=== PATIENT | male | born 1950 | race Caucasian/White ===

== ENCOUNTER 2022-11-24 00:41 | Inpatient (IN) | payer MEDICARE, SELFPAY ==
[2022-11-24] VITALS (33 sets, daily range): BP systolic 100–140; BP diastolic 49–73; PULSE 61–740; RESP 14–23; TEMP 36–38.1; O2SAT 91–98; BMI 35.0
--- NOTE | 2022-11-24 00:38 | W.PM.HP.N ---
Date of service: 11/24/22 Time of Service: 06:37 Assessment and Plan Assessment and plan (1) Intertrochanteric fracture of left femur: Start date: 11/23/22 Status: Acute Assessment and plan: This is a 72-year-old gentleman who fell and injured his left hip while trying to get into his car. He had a mechanical fall with no presyncopal symptoms. He had no other injuries. He is medically cleared for surgery except for being on Eliquis which will have to be held for 24 hours prior to surgery. He most likely will have his repair the morning of 11/25/2022. Dr. Ledezma, orthopedics has been consulted and is aware of patient. (2) Influenza A: Status: Acute Assessment and plan: Patient has positive influenza A testing with no symptoms. Caution for contagiousness during perioperative period. No indication for Tamiflu unless prophylactic which would be for 10-day course. (3) CAD (coronary artery disease) of artery bypass graft: Status: Chronic Assessment and plan: Patient is status post CABG x4 in 2016 with no recurrent cardiac symptoms especially around this event. He had a negative work-up at [facility] ED and remained stable at this hospital. He is medically cleared for surgery. He will continue his usual medical regimen. (4) Family history of hypercoagulable state: Status: Chronic Assessment and plan: Patient cannot give a good reason for being on Eliquis with no history of cardiac dysrhythmia and stating that his PCP thought that he would be a good idea to be on Eliquis because of his mother had thromboembolic events though he mentions no testing or previous events of his own. This can be reevaluated. Hold Eliquis prior to surgery and restart when safe. (5) HTN (hypertension): Status: Chronic Assessment and plan: Fairly well controlled on medical therapy but patient does have hypokalemia with potassium supplement on hydrochlorothiazide. Follow-up lab and replete potassium as needed with patient chronically on potassium supplementation. Check magnesium. (6) Hyperlipidemia: Status: Chronic Assessment and plan: On statin therapy being monitored by PCP with adjustment as needed. History of Present Illness History of Present Illness Chief Complaint: Mechanical fall with left hip fracture Narrative: This is a 72-year-old male patient who lives in [place] near [facility] who was getting out of his car about 4 PM in the afternoon the day prior to admission with a handful of mail and slipped on the ice falling onto his left side striking his left hip very hard. He had extreme pain and was on the ground for about 20 minutes with no unable to help him therefore he crawled back into his car and drove himself to the emergency room at the local hospital. He was evaluated and found to have an acute left intratrochanteric fracture with no other complications. He recently did go through a CABG x4 in 2016 and does have chronic stable medical problems including hypertension, rheumatoid arthritis, hypothyroidism, hyperlipidemia and some chronic pain issues with his arthritis. He was placed on Eliquis because of the family history of hypercoagulability but not because of her cardiac arrhythmia or thromboembolic events and the patient himself. This may delay his surgery having taken his Eliquis as usual the morning prior to admission. [facility] ED called Dr. Ledezma the local orthopedic surgeon who accepts the patient for transfer and surgical repair of his hip fracture. Since he was medically stable he was admitted to the hospitalist service for clearance. Pain management was ongoing with IV Dilaudid. Patient never lost consciousness and did refuse a CT scan of his head though offered because of being on Eliquis. He said he did not hit his head or have any injuries other than his hip. Patient is a full code. Review of Systems Narrative: 13 point review of systems otherwise unrevealing or stable. [facility] All Active Problems (Updated 11/24/22 @ 06:50 by Jagdeep Mendez) Hypothyroidism (acquired) (Acute) Hypokalemia (Acute) Family history of hypercoagulable state (Chronic) Hyperlipidemia (Chronic) HTN (hypertension) (Chronic) Rheumatoid arthritis in remission (Acute) Influenza A (Acute) CAD (coronary artery disease) of artery bypass graft (Chronic) Intertrochanteric fracture of left femur (Acute) Social History Smoking/Tobacco Use Status: Never Smoking risk assessment performed?: Yes Alcohol Intake: never Drug use: Never Substance use type: does not use Do you feel safe at home: Yes Do you feel safe in your relationship?: Yes Meds Allergies and Home Medications Allergies Allergy/AdvReac Type Severity Reaction Status Date / Time No Known Allergies Allergy Unverified 11/24/22 02:43 Home Medications Medication Instructions Recorded Confirmed Type apixaban 5 mg tablet 5 mg PO BID 11/24/22 11/24/22 History folic acid 1 mg tablet 1 mg PO DAILY 11/24/22 11/24/22 History hydrochlorothiazide 25 mg tablet 25 mg PO DAILY 11/24/22 11/24/22 History levothyroxine 150 mcg tablet 150 mcg PO DAILY 11/24/22 11/24/22 History lidocaine 5 % topical patch 1 patch topical DAILY 11/24/22 11/24/22 History losartan 25 mg tablet 25 mg PO DAILY 11/24/22 11/24/22 History methotrexate sodium 2.5 mg tablet 2.5 mg PO QWEEK 11/24/22 11/24/22 History nitroglycerin 0.4 mg sublingual 0.4 mg sublingual Q5-15M PRN Angina 11/24/22 11/24/22 History tablet nortriptyline 10 mg capsule 10 mg PO QHS 11/24/22 11/24/22 History potassium citrate 10 mEq (1,080 2,160 mg PO BID 11/24/22 11/24/22 History mg) tablet,extended release pregabalin 75 mg capsule 75 mg PO BID 11/24/22 11/24/22 History rosuvastatin 20 mg tablet 20 mg PO HS 11/24/22 11/24/22 History tamsulosin 0.4 mg capsule 0.8 mg PO DAILY 11/24/22 11/24/22 History Exam Narrative Exam Narrative: General: Patient appears appropriate for age, moderately obese and mesomorphic. He is alert and oriented x3. He is in no acute distress. HEENT: Normocephalic, eyes with pupils equal and react to light symmetrically, extraocular movement intact and sclera anicteric. Oropharynx with moist mucosa. Neck: Supple without JVD. Back: Stooped posture without CVA tenderness. Lungs: Fair aeration and clear to auscultation percussion. No focalizing rales or rhonchi. Heart: Regular rate and rhythm with no murmurs gallops appreciated. Chest has well-healed sternal scar. Abdomen: Obese contour, soft and nontender to palpation with no palpable hepatosplenomegaly. Bowel sounds positive all quadrants. Genitalia/rectal: Full exam deferred. External genitalia appear within normal limits. Extremities: Without clubbing, cyanosis or pitting edema with some nonpitting edema over both legs. Peripheral pulses intact. Left leg is slightly shortened with foot turned outward. Left hip is tender to movement. No bruising or swelling. Skin: Darkly tanned, normal color otherwise, warm and dry. Neuro: Cranial nerves II through XII gross intact, no focalized motor deficits and no tremor. Psych: Normal affect and mood. Remote and recent memory intact. No abnormal thought processes. Results Labs Result diagrams: 11/24/22 05:35 11/24/22 05:35
[2022-11-24] MEDS: Acetaminophen 325 MG TAB PO ×2 (02:49→09:24)
[2022-11-24] MEDS: Mylanta Suspension 30 ML CUP PO (02:49)
[2022-11-24] MEDS: HYDROmorphone 2 MG/ML SYR 0.5 MG IVP ×3 (03:01→09:23)
[2022-11-24] MEDS: Normal Saline Flush 10 ML SYR IVP ×2 (03:02→09:24)
[2022-11-24] MEDS: Famotidine 20 MG TAB PO ×2 (03:02→20:17)
[2022-11-24 06:40] LABS: HCT 37.3 % (40.0-50.0); HGB 12.7 g/dL (13.5-17.5); MCH 33.2 pg (27.0-33.0); MCV 98 fL (80-95); MPV 9.3 fL (8.0-11.0); Platelet Count 229 10^3/uL (130-400); RBC 3.82 10^6/uL (4.36-5.78); RDW 12.9 % (11.8-14.1); RDW-SD 45.7 fL; WBC 9.17 10^3/uL (4.4-10.8)
--- NOTE | 2022-11-24 06:45 | RT.EKG_ITS ---
APPROVED REPORT Exam: Resting ECG Reason for Exam: CAD, preoperative Patient Location: I HR:82 bpm ECG Measurements Heart Rate 82 AXIS NV 138 P 36 QRSd 118 QRS 66 QT 389 T 84 QTc 455 Conclusion Sinus rhythm...normal P axis, V-rate 50- 99 Nonspecific intraventricular conduction delay...QRSd >115mS, not LBBB/RBBB Borderline T abnormalities, anterior leads...T flat or neg, V2-V4
[2022-11-24 06:51] LABS: INR 1.1 (0.9-1.1); Prothrombin Time 10.6 sec (9.3-11.0)
[2022-11-24 07:04] LABS: ALT 29 U/L (16-63); AST 29 U/L (15-37); Albumin 3.6 g/dL (3.4-5.0); Alkaline Phosphatase 64 U/L (46-116); Anion Gap 8.9 mmol/L (3-11); BUN 14 mg/dL (7-18); Bilirubin, Total 1.1 mg/dL (0.2-1.0); CO2 25.1 mmol/L (21.0-32.0); CREATININE 0.9 mg/dL (0.70-1.30); Calcium 8.8 mg/dL (8.5-10.1); Chloride 100 mmol/L (98-107); Estimated GFR 91.88 (mL/min/1.73m2); Glucose 112 mg/dL (74-106); Magnesium 2.1 mg/dL (1.8-2.4); Potassium 3.5 mmol/L (3.5-5.1); Sodium 134 mmol/L (136-145); Total Protein 7.1 g/dL (6.4-8.2)
--- NOTE | 2022-11-24 07:17 | W.ORTHOCONSU ---
Date of service: 11/24/22 Time of Service: 07:17 History of Present Illness History of Present Illness Chief Complaint: Left Hip Pain Narrative: Leonidas is a 72-year-old who had a mechanical fall yesterday. He was outside when it happened landing on his left hip. He had immediate pain and deformity but was unable to stand. However, he pulled himself off the ground in the senior living where he was able to call for help he was seen in the emergency department at [facility] in [facility]. He was diagnosed with a displaced and comminuted basicervical/intertrochanteric hip fracture on the left side. There is no bed availability at the local [facility] and surrounding hospitals and we are called in consultation to assist in management of his hip fracture. He currently reports no change to his medical health at baseline. He is years removed from a CABG procedure which did well and he has no active chest pain or shortness of breath or dyspnea on exertion. He does take apixaban on a daily basis with his last dose being yesterday morning. He has had no recent illnesses or sicknesses. He denies cough or fever or chills. However, he did test positive for influenza A at [facility] but negative for COVID. He has baseline peripheral neuropathy which has been present for some years. He reports pain in the left hip. He denies any pain in the left knee or left leg. He denies any new numbness or tingling. He denies any head trauma or loss of consciousness. Consults Consult date: 11/24/22 Requesting physician: Jagdeep Mendez Consult Reason Left Hip Fracture Assessment and Plan Assessment and plan (1) Intertrochanteric fracture of left femur: Status: Acute Assessment and plan: Leonidas is a 72-year-old male who suffered a mechanical fall landing on his left side, resulting in intertrochanteric fracture of the left hip. There is notable displacement of the fracture fragments with pain with any motion. At this point I do recommend operative fixation. He has been transferred from [facility]. He does have a significant medical history and I appreciate hospitalist input and his preoperative clearance. However, I do not detect any active issues. He does take apixaban but has missed 2 doses now and therefore, I do think it safe to proceed with surgery. The surgery would be mostly percutaneous with intramedullary nail fixation. Given this approach, it can be done safely without prolonging his current morbidity of laying in bed. We will utilize tranexamic acid at the time of surgery. Continue to hold his Eliquis but he may resume it on postop day #1. NPO. Plan for intervention nail fixation of the left hip later today. I reviewed this with him peer discussed technical details. I reviewed the risk of the procedure to include bleeding, infection, pain, stiffness, damage nerves and vessels, damage to muscle and tendons, malunion, nonunion, hardware prominence, hardware failure. I discussed the necessary time for rehabilitation and the basic outline of his treatment plan. All of his questions were answered. We will move forward with hip fracture fixation, likely later today. Review of Systems All systems reviewed & are unremarkable except as noted in HPI and below PFSH All Active Problems Hypothyroidism (acquired) (Acute) Hypokalemia (Acute) Family history of hypercoagulable state (Chronic) Hyperlipidemia (Chronic) HTN (hypertension) (Chronic) Rheumatoid arthritis in remission (Acute) Influenza A (Acute) CAD (coronary artery disease) of artery bypass graft (Chronic) Intertrochanteric fracture of left femur (Acute) Social History Smoking/Tobacco Use Status: Never Smoking risk assessment performed?: Yes Alcohol Intake: never Drug use: Never Substance use type: does not use Do you feel safe at home: Yes Do you feel safe in your relationship?: Yes Exam Narrative Exam Narrative: Resting in a reclined position in the hospital bed. No acute distress. Alert and oriented x3. Head is normocephalic and atraumatic. Evaluation the left leg shows a shortened externally rotated position. There is no overlying skin changes. No ecchymosis. No abrasions or other changes to the skin itself. No significant swelling. No pain to palpation of the distal femur, knee, leg, foot and ankle. He reports decree sensation about the foot from the ankle distal although he does detect gross sensation and reports that it feels tingly. This is the same for the contralateral, right, side. He is able to dorsiflex and plantarflex left ankle as well as the great toe. Palpable DP and PT pulse. Results Last Vital Signs Temp 37.1 C 11/24/22 04:30 Pulse 83 11/24/22 02:52 Resp 20 11/24/22 02:50 BP 140/68 11/24/22 02:50 Pulse Ox 95 11/24/22 02:50 Labs Result diagrams: 11/24/22 06:20 11/24/22 06:20 Labs: Laboratory Results - last 24 hr 11/24/22 11/24/22 11/24/22 06:20 06:20 06:20 WBC 9.17 RBC 3.82 L Hgb 12.7 L Hct 37.3 L MCV 98 H MCH 33.2 H MCHC 34.0 RDW 12.9 Plt Count 229 MPV 9.3 PT 10.6 INR 1.1 Sodium 134 L Potassium 3.5 Chloride 100 Carbon Dioxide 25.1 Anion Gap 8.9 BUN 14 Creatinine 0.9 Est GFR (CKD-EPI 2020) 91.88 Glucose 112 H Calcium 8.8 Magnesium 2.1 Total Bilirubin 1.1 H AST 29 ALT 29 Alkaline Phosphatase 64 Total Protein 7.1 Albumin 3.6 Imaging Imaging Studies: X-ray of the left hip was reviewed. This shows a displaced intertrochanteric fracture. It primarily appears to be a basicervical fracture but it does have intertrochanteric extension to the level of the lesser trochanter and just distal. No distal extension is seen down the femoral shaft. No involvement of the femoral neck nor the femoral head is seen. No significant underlying arthritis is appreciated.
--- NOTE | 2022-11-24 09:00 | PDOC.CMIN ---
- If Service Date Differs Date of service: 11/24/22 Time of Service: 09:00 Care Management Initial Assess REASON FOR HOSPITALIZATION:: Intertrochanteric fracture of left femur PAST MEDICAL HISTORY/PAST SURGICAL HISTORY:: All Active Problems (Updated 11/24/22 @ 06:50 by Jagdeep Mendez). Hypothyroidism (acquired) (Acute). Hypokalemia (Acute). Family history of hypercoagulable state (Chronic). Hyperlipidemia (Chronic). HTN (hypertension) (Chronic). Rheumatoid arthritis in remission (Acute). Influenza A (Acute). CAD (coronary artery disease) of artery bypass graft (Chronic). Intertrochanteric fracture of left femur (Acute) PREVIOUS FUNCTIONAL STATUS/SOCIAL/FAMILY SUPPORTS:: Leonidas lives in a single family home in [place] with his partner of 22 years, Carol Ann. He has no children but he does have a pit bull named Monique that is his baby. Leonidas has been retired from the [employer] for 26 years and, per his account, he has been able to play every day. He is independent at baseline and does not receive any services. CURRENT FUNCTIONAL STATUS:: Leonidas was siting up in a chair when CM met with him. He was in good spirits and engaged easily with CM. Leonidas had surgery this morning to repair a fractured femur. He worked with PT this afternoon and was able to ambulate with a walker. he anticipates being able to discharge home in a day or two. He denied the [facility] for any services. Leonidas shared that his has been hospitalized for 3 months. She is in a hospital in [facility] which is 100 miles from his home. He goes to see her every other day and does not know when she will be well enough to come home. She had an ankle fracture then developed post-op bowel issues. She had 2 bowel surgeries in a local [place] hospital that did not go well and was transferred to [place]. ADVANCE DIRECTIVES:: none on file Has patient been provided with info about the portal/API?: Yes Did the patient sign up for the portal?: No CODE STATUS:: Full Code INSURANCE COVERAGE / FINANCIAL ISSUES:: [facility] Medicare Repalcement CURRENT HOME/COMMUNITY SERVICES/EQUIPMENT:: Leonidas receives no services but does have a walker and a cane and a scooter at home PRIMARY CARE PHYSICIAN:: Puhc Thorne POTENTIAL DISCHARGE NEEDS:: follow up with Orthopedic surgeon, PCP and plan of care PATIENT/FAMILY EDUCATION NEEDS:: Review of discharge instructions, limitations, activity, follow up plan, discuss [employer] TRANSPORTATION:: via private vehicle with family PLAN:: Anticipate Leonidas will discharge home with no new services. He will follow up with community providers and his plan of care and transport with family. CM will continue to support Leonidas and his discharge planning needs.
[2022-11-24 09:01] LABS: TSH 0.21 uIU/mL (0.36-3.74); Troponin I < 50 ng/L (<or=60)
--- NOTE | 2022-11-24 10:35 | ANES.PREOP_ITS ---
General Info Date of Service Date Performed: 11/24/22 Height: 5 ft 11 in Weight: 113.9 kg Body Mass Index (BMI): 35.0 Surgical Procedure: Operation Date: 11/24/22 12:15 Proposed Procedure Side Surgeon p Hip TFNA Short Left Mainor Ledezma MD Meds Allergies and Home Medications Allergies Allergy/AdvReac Type Severity Reaction Status Date / Time No Known Allergies Allergy Unverified 11/24/22 02:43 Home Medication Medication Instructions Recorded apixaban 5 mg tablet 5 mg PO BID 11/24/22 folic acid 1 mg tablet 1 mg PO DAILY 11/24/22 hydrochlorothiazide 25 mg tablet 25 mg PO DAILY 11/24/22 levothyroxine 150 mcg tablet 150 mcg PO DAILY 11/24/22 lidocaine 5 % topical patch 1 patch topical DAILY 11/24/22 losartan 25 mg tablet 25 mg PO DAILY 11/24/22 methotrexate sodium 2.5 mg tablet 2.5 mg PO QWEEK 11/24/22 nitroglycerin 0.4 mg sublingual 0.4 mg sublingual Q5-15M PRN Angina 11/24/22 tablet nortriptyline 10 mg capsule 10 mg PO QHS 11/24/22 potassium citrate 10 mEq (1,080 2,160 mg PO BID 11/24/22 mg) tablet,extended release pregabalin 75 mg capsule 75 mg PO BID 11/24/22 rosuvastatin 20 mg tablet 20 mg PO HS 11/24/22 tamsulosin 0.4 mg capsule 0.8 mg PO DAILY 11/24/22 Current Visit Medications: Current Medications Generic Name Dose Route Start Last Admin Trade Name Eugenia PRN Reason Stop Dose Admin Acetaminophen 0 mg 11/24/22 00:41 11/24/22 09:24 Acetaminophen 325 Mg Tab PO 650 mg Q4H PRN PRN Administration Al Hydrox/Mg Hydrox/Simethicone 30 ml 11/24/22 00:41 11/24/22 02:49 Mylanta Suspension 30 Ml Cup PO 30 ml Q2H PRN PRN Administration Dimethicone/Zinc Oxide 0 gm 11/24/22 00:41 Jenny Protect Cream 142 Gm Tube TP PRN PRN Docusate Sodium 100 mg 11/24/22 00:41 Docusate Sodium 100 Mg Cap PO TID PRN PRN Famotidine 20 mg 11/24/22 08:30 11/24/22 09:13 Famotidine 20 Mg Tab PO Not Given BID [facility] Folic Acid 1 mg 11/24/22 08:30 11/24/22 09:13 Folic Acid 1 Mg Tab PO Not Given DAILY [facility] Hydrochlorothiazide 25 mg 11/24/22 08:30 11/24/22 09:13 Hydrochlorothiazide 25 Mg Tab PO Not Given DAILY [facility] Hydromorphone HCl 0.5 mg 11/24/22 02:50 11/24/22 09:23 Hydromorphone 2 Mg/Ml Syr IVP 0.5 mg Q2H PRN PRN Administration Sodium Chloride 500 mls @ 0 mls/hr 11/24/22 00:41 Saline 500ml Bag IV PRN PRN As Directed Cefazolin Sodium/Dextrose 2 gm in 50 mls @ 100 mls/hr 11/24/22 07:15 Ancef Duplex IVPB 11/25/22 23:59 PREOP [facility] Tranexamic Acid 1,000 mg/ 60 mls @ 360 mls/hr 11/24/22 07:15 Sodium Chloride IVPB 11/25/22 23:59 PREOP [facility] IV Miscellaneous Supplies 1 each 11/24/22 00:45 Iv Access IV DIRECTED [facility] Levothyroxine Sodium 150 mcg 11/24/22 06:00 11/24/22 09:13 Levothyroxine 150 Mcg Tab PO Not Given DAILY@0600 [facility] Lidocaine 1 patch 11/24/22 08:30 11/24/22 09:14 Lidocaine 5% Patch TP Not Given DAILY [facility] Losartan Potassium 25 mg 11/24/22 08:30 11/24/22 09:14 Losartan 25 Mg Tab PO Not Given DAILY [facility] Magnesium Hydroxide 30 ml 11/24/22 00:41 Milk Of Magnesia 30 Ml Cup PO DAILY PRN PRN Nitroglycerin 0.4 mg 11/24/22 07:01 Nitroglycerin 0.4 Mg Tab SL Q5 MIN PRN X3 PRN Angina Nortriptyline HCl 10 mg 11/24/22 22:00 Nortriptyline 10 Mg Cap PO HS [facility] Oseltamivir Phosphate 75 mg 11/24/22 08:30 11/24/22 09:14 Oseltamivir 75 Mg Cap PO 11/28/22 20:01 Not Given BID [facility] Polyethylene Glycol 17 gm 11/24/22 00:41 Polyethylene Glycol 3350 17 Gm Packet PO DAILY PRN PRN Constipation Potassium Citrate 2,160 mg 11/24/22 08:30 11/24/22 09:14 Potassium Citrate 1080 Mg Tabcr PO Not Given BID [facility] Pregabalin 25 mg/ Pregabalin 75 mg 11/24/22 08:30 11/24/22 09:14 50 mg PO Not Given BID [facility] Rosuvastatin Calcium 20 mg 11/24/22 22:00 Rosuvastatin 10 Mg Tab PO HS [facility] Sodium Chloride 0 ml 11/24/22 00:41 11/24/22 09:24 Normal Saline Flush 10 Ml Syr IVP 10 ml PRN PRN Administration Tamsulosin HCl 0.8 mg 11/24/22 08:30 11/24/22 09:14 Tamsulosin 0.4 Mg Capcr PO Not Given DAILY [facility] PFSH Active Problems Active Problems: Problem Status Onset Code Hypothyroidism (acquired) E03.9 Hypokalemia E87.6 Family history of hypercoagulable state Z83.2 Hyperlipidemia E78.5 HTN (hypertension) I10 Rheumatoid arthritis in remission M06.9 Influenza A J10.1 CAD (coronary artery disease) of artery bypass graft I25.810 Intertrochanteric fracture of left femur S72.142A Tobacco Smoking/Tobacco Use Status: Never Alcohol Alcohol Intake: never Substance Use Substance use: Never Substance use type: does not use Vital Signs and Lab Results Vital Signs Most Recent Vital Signs in EMR: Most Recent Vital Signs Temp Pulse Resp BP Pulse Ox 38.1 C H 86 20 136/69 97 11/24/22 09:24 11/24/22 07:43 11/24/22 07:27 11/24/22 07:27 11/24/22 07:27 Lab Results Result Diagrams: 11/24/22 06:20 11/24/22 06:20 Blood Type / Crossmatch: No Data to Display Complete Blood Count: White Blood Count 9.17 10^3/uL (4.4-10.8) 11/24/22 06:20 Red Blood Count 3.82 10^6/uL (4.36-5.78) L 11/24/22 06:20 Hemoglobin 12.7 g/dL (13.5-17.5) L 11/24/22 06:20 Hematocrit 37.3 % (40.0-50.0) L 11/24/22 06:20 Platelet Count 229 10^3/uL (130-400) 11/24/22 06:20 Complete Metabolic Panel: 2 Sodium 134 mmol/L (136-145) L 11/24/22 06:20 Potassium 3.5 mmol/L (3.5-5.1) 11/24/22 06:20 Chloride 100 mmol/L (98-107) 11/24/22 06:20 Carbon Dioxide 25.1 mmol/L (21.0-32.0) 11/24/22 06:20 BUN 14 mg/dL (7-18) 11/24/22 06:20 Creatinine 0.9 mg/dL (0.70-1.30) 11/24/22 06:20 Est GFR (CKD-EPI 2020) 91.88 (mL/min/1.73m2) 11/24/22 06:20 Magnesium 2.1 mg/dL (1.8-2.4) 11/24/22 06:20 Calcium 8.8 mg/dL (8.5-10.1) 11/24/22 06:20 Albumin 3.6 g/dL (3.4-5.0) 11/24/22 06:20 Glucose 112 mg/dL (74-106) H 11/24/22 06:20 Liver Function Panel: Alanine Aminotransferase (ALT/SGPT) 29 U/L (16-63) 11/24/22 06: 20 Aspartate Amino Transf (AST/SGOT) 29 U/L (15-37) 11/24/22 06:20 Coagulation Panel: INR International Normalized Ratio 1.1 (0.9-1.1) 11/24/22 06:2 0 Prothrombin Time 10.6 sec (9.3-11.0) 11/24/22 06:20 Cardiac Panel: Troponin I < 50 ng/L (<or=60) 11/24/22 Arterial Blood Gas: No Data to Display Venous Blood Gas: No Data to Display Pancreas Panel: No Data to Display Thyroid Panel: Thyroid Stimulating Hormone (TSH) 0.21 uIU/mL (0.36-3.74) L 11/24/22 06:20 Infectious Disease: No Data to Display Blood Cultures: No Data to Display Toxicology Panel: No Data to Display Imaging and Studies Imaging and Studies Study information below may be from another EMR and interpreted by another provider. Please see original notes in EMR for more complete details. EKG Summary: EKG PATIENT NAME: Delphine Amezquita #: [id number] ORDERING PROVIDER: Alison Mendez #: [id number] PRIMARY CARE PROVIDER:RODOLFO TO DATE/TIME OF SERVICE: 11/24/22816 : 2PERFORMING LOCATION: [place] APPROVED REPORT Exam: Resting ECG Reason for Exam: CAD, preoperative Patient Location: I HR:82 bpm ECG Measurements Heart Rate 82 AXIS WY 138 P 36 QRSd 118 QRS 66 QT 389 T84 QTc 455 Conclusion Sinus rhythm...normal P axis, V-rate 50- 99 Nonspecific intraventricular conduction delay...QRSd >115mS, not LBBB/RBBB Borderline T abnormalities, anterior leads...T flat or neg, V2-V4 Anesthesia Assessment and Plan Anesthesia History Personal History: No History of Anesthesia Complications Family History: No Family History of Anesthesia Complications Exercise Tolerance Exercise Tolerance: Metabolic Equivalents>4 Pertinent Negatives Pertinent Negatives: No Symptoms of GERD and No History of CVA/TIA Cardiac & Pulmonary Exam Cardiac Exam: Normal S1/S2 Heart Sounds Pulmonary Exam: Active Cough or Cold Cardiac and Pulmonary Comment:: Active influenza. Right diminished. Clearing phlegm actively. Implantable Cardiac Device Does patient have a Pacemaker or an ICD?: No Airway Exam Known Difficult Airway: No Mallampati Class: 2 Mouth Opening: Normal (> 3cm) Thyromental Distance: Greater than 3 cm Neck Range of Motion: Full ROM Neck Circumference: Normal Teeth Condition: Normal Dentition ASA Classification ASA Score: ASA 3 Emergency Case?: Yes NPO Status NPO Status: NPO Clears >2 hours, Solids >8 hours Anesthesia Plan Resuscitation Status: Full Code Anesthesia Technique: General Anesthesia Airway Planned: Endotracheal Tube Monitors Used: Standard Monitors Preoperative Comments:: Patient on elequis. Unable to have spinal. Active influenza. Plan GETA with RSI and Glidescope laryngoscopy
[2022-11-24] MEDS: Lactated Ringers 1,000 ML 30 ML IV (11:00)
[2022-11-24] MEDS: ceFAZolin 2 GM/50 ML BAG IVPB (11:38)
--- NOTE | 2022-11-24 12:55 | DI.RAD_ITS ---
Exam(s) XR HIP LT IN OR EXAM: CLINICAL HISTORY: TECHNIQUE: COMPARISON: No exams were available for comparison FINDINGS: Fluoroscopy provided procedure. Radiologist not present. See report for details. Radiation exposure index: Robertor= 55.85mGy IMPRESSION:
[2022-11-24] MEDS: fentaNYL 100 MCG/2 ML VIAL IVP ×2 (13:49→13:56)
--- NOTE | 2022-11-24 13:54 | W.ANESPOSTOP ---
Postoperative Evaluation Date, Time and Location Date Performed: 11/24/22 Time Performed: 13:44 Patient Location: PACU Vital Signs Most Recent Imported Vital Signs: Most Recent Vital Signs Temp Pulse Resp BP Pulse Ox 36.6 C 68 18 140/51 L 98 11/24/22 13:51 11/24/22 13:51 11/24/22 13:51 11/24/22 13:51 11/24/22 13:51 Pain Score Most Recent Pain Score: Most Recent Pain Score Pain Level 6 11/24/22 13:51 Assessment Mental Status: Awake (Alert & Oriented to Patient Baseline) Airway and Respiratory Function: Patent airway with normal (patient baseline) respiratory exam Cardiovascular Function: Hemodynamically Stable Hydration Status: Adequately Hydrated Nausea & Vomiting: No Nausea or Vomiting Pain: Pain is Moderate or Severe Postoperative Pain Management: Pain being addressed with medication (Patient states discomfort is better than prior to surgery.) Peripheral Nerve Block: Patient did not receive a nerve block
[2022-11-24] MEDS: oxyCODONE 5 MG TAB PO ×2 (15:14→20:24)
--- NOTE | 2022-11-24 15:25 | PT.INIE ---
Date of service: 11/24/22 Time of Service: 15:25 PT Notes Visit Reasons: Left Hip Fracture,Influenza A,Anticoagulated Physical Therapy Inpatient Initial Evaluation Date: 11/24/2022 Referring Doctor: Mainor Ledezma MD PT Orders: PT CONSULT: S/p Ortho surgery. S/p IMN fixation of left femur fracture. Precautions: Fall. Standard. WBAT on the R LE with AD. Droplet precautions in place. Patient Profile/Admitting Diagnosis: Leonidas is a 72-year-old male with a displaced basicervical intertrochanteric fracture of the left hip sustained from a fall at home and is status post ORIF on postoperative day 0. Patient also with a diagnosis of influenza A, CAD, hypertension, and hyperlipidemia. PMHX: All Active Problems?(Updated 11/24/22 @ 06:50 by Jagdeep Mendez) Hypothyroidism (acquired) (Acute) Hypokalemia (Acute) Family history of hypercoagulable state (Chronic) Hyperlipidemia (Chronic) HTN (hypertension) (Chronic) Rheumatoid arthritis in remission (Acute) Influenza A (Acute) CAD (coronary artery disease) of artery bypass graft (Chronic) Intertrochanteric fracture of left femur (Acute) Social History/Home Situation: Lives with who currently is in the hospital recovering from a fall. Has three steps at the entarnce of his home with one rail. Independent with all aspects of ADLs prior to surgery. Excluding this mechanical fall, patient has had no falls in the past year. Still drives. Equipment Owned/DME: Wheelchair, FWW, SPC Subjective: Reports 8/10 pain in the L hip at rest. Nurse Lauren gave patient a pain pill within 10 minutes prior to this visit. Patient is agreeable with getting out of bed and walking to chair to see how he does. Denies chest pain, headache, and liughtheadedness throughout transfer. Objective: General Observation: In NAD. Mepilex Ag over surgical incision. TEDS to B legs. Telemetry monitoring in place. Col pack over L hip. Mental Status: Alert and oriented as to person, place, time, and purpose. Able to pay attention, focus, and respond appropriately. Pain: 8/10 in L hip Vital Signs: WNL as closely moniored by nursing staff ROM: Right Lower Extremity: Hip flexion allows up to 90 degrees. Hip abduction allows 10 degrees. Unable to slide L LE towards right edge of bed. Knee flexion WFL. Ankle dorsiflexion WFL. Ankle plantarflexion WFL. Left Lower Extremity: Hip flexion WFL. Hip abduction WFL. Knee flexion WFL. Ankle dorsiflexion WFL. Ankle plantarflexion WFL. Strength: Right Lower Extremity: Hip flexors 5/5. Hip abductors 5/5. Knee flexors 5/5. Knee extensors 4/5. Ankle dorsiflexors 4/5. Ankle plantarflexors 4/5. Left Lower Extremity: Hip flexors 3-/5. Hip abductors 3-/5. Knee flexors 4-/5. Knee extensors 4-/5. Ankle dorsiflexors 4-/5. Ankle plantarflexors 4-/5. Bed Mobility/Transfers: Supine to sit with minimal assist to L LE to minimize pain Sit to stand with contact guard assist Stand to sit with contact guard assist Bed to reclining chair with contact guard assist Gait: Instructed patient with level surface ambulation of 8 steps requiring contact guard assist. Buffy decreased. Gait antalgic. Reported 7-8/10 pain whch went down to 6/10 when seated on the recliner. Step-to gait pattern. Balance: Static Sitting: Normal Dynamic Sitting: Normal Static Standing: Fair Dynamic Standing: Fair THERA EX: Instructed patient to do the following every hour while awake today and tomorrow mornig before he gets seen by PT again Ankle pumps x10 Quadriceps setting x 5 Special Tests: Mobility Limitations Standardized Measure [facility] AM-PAC 6 clicks Basic Mobility Inpatient Short Form: Raw Score: 18 CMS Score: 47% deficit Informed Consent/Education: Patient was instructed in purpose of PT consult and plan of care. Agreeable to proceed with established PT POC to achieve personal goals. Assessment: Patient requires the use of a front-wheel walker for all mobility ADL performance to maximize independence and reduce fall risk. Patient presents with clinical signs and symptoms consistent with current/admitting diagnoses that have resulted to mobility limitations, gait instability, generalized weakness, and overall ADL decline as demonstrated by the following impairment level findings: 1. Decreased strength to L hip major muscle groups 2. Impaired sitting/standing balance 3. Impaired tolerance 4. Limitation of joint range of motion in L hip 5. pain at 7-8/10 in the L hip Impairments are contributing to the following functional limitations: 1. Decline in bed mobility skills 2. Decline in transfer skills 3. Difficulty with ambulation without assistive device and physical assistance 4. Increased completion time for mobility ADL performance 5. Increased risk for falls 6. Difficulty with managing steps alone safely Patient is assessed as a 35500 moderate complexity based on the following: History: 72-year-old male with past medical history as indicated above Examination: Demonstrable impairment in strength, balance, and mobility level with underlying impairments and functional limitations as exhibited above as well as deficit score of 47% utilizing the [facility] Mobility Inpatient Short Form Presentation: Evolving Decision Makin moderate complexity Goals: Goals X1 week 1. Supine-Sit independent 2. Sit-Supine independent 3. Sit-Stand independent 4. Stand-Sit independent with FWW 5. Bed-Chair independent with FWW 6. Chair-Bed independent with FWW 7. Independent gait on level surface with use of FWW for at least 300 feet without report of pain nor dyspnea 8. Independent stair negotiation while holding onto 1 rails for at least 3 steps without report of pain nor dyspnea 9. Independent with home exercise program 10. Good static and dynamic standing balance/tolerance Plan of Care/Treatment Plan: 1-2x/day, 7 days/week x 1 week. Plan of care has been reviewed with the ANNUAL CAMPAIGN MANAGER providing the service under Physical Therapy direction. Initiate Physical Therapy intervention for pain management as needed, strengthening, bed mobility, transfers, gait, stairs, balance training, and use of assistive device. DISCHARGE RECOMMENDATIONS: [] Home with no services [] [] Home with services [specify] [X] Home with outpatient PT. Home when medically cleared by orthopedic surgeon. Recommend outpatient PT services in order to optimize functional mobility outcomes and facilitate return to independent community ambulation without an assistive device. [] SNF for continued rehabilitation [] [] Group Home Care [] [] SNF versus LTC based on ability to participate and progress [] TREATMENT CODE/TIME: 17658 x 20 minutes, 975 0 x 13 minutes beginning at 15:25 PM. Thank you for the opportunity to participate in the care of this patient. Alyssia Stuart PT, DPT, CLT [facility] [place], [place]
--- NOTE | 2022-11-24 17:35 | ROE_ITS ---
Date of service: 11/24/22 Time of Service: 13:30 Operative Note Operative Note DATE OF PROCEDURE: 11/24/22 PRE-OP DIAGNOSIS: Left Intertrochanteric Femur Fracture POST-OP DIAGNOSIS: same PROCEDURE: Left Intramedullary Fixation of Proximal Femur Fracture SURGEON: Mainor Ledezma Refer to Anesthesia Record ESTIMATED BLOOD LOSS: 100 PATHOLOGY: none sent COMPLICATIONS: None Patient was transported to: PACU Patient's condition: stable Implants: Depuy-Synthes TFNA 12mm x 170mm Indications: Leonidas is a 72 year old male who presented to the Emergency Department after a fall. X-rays confirmed the diagnosis of a intertrochanteric fracture of the proximal femur. I reviewed the possible treatment options and given the fra cture of the femur, I recommened operative fixation. I discussed the technical details of the surgery. I reviewed the risks such as bleeding, infection, pain, stiffness, malunion, nonunion, hardware prominence, hardware faiilure, malrotation, avascular necrosis, blood clot. Despite these risks, he agreed to proceed. Findings: There was a fracture of the proximal femur which was able to be reduced with traction and internal rotation and external manipulation. There was a check fragment going posteriorly along the lateral femur which was explored and not penetrate past the distal screw and did not propagate down the femur after nail insertion. Procedure Description: Leonidas was taken back to the operating room. A general anesthestic was then administered. The feet were wrapped with cast padding and Coban and then placed into the boot liners and then into the boots. Care was taken to protect the skin and make sure the heels were fully down and the boots were stable. The patient was then positioned onto the HANA table. Both legs were held in a neutral position. SCDs were applied. The patient was then slid down onto a perineal post. The arm of the operative side was then placed across the chest and secured. The nonoperative leg was scissored. A gentle reduction was then performed with traction and internal rotation and gentle external manipulation. Prophylactic antibiotics in the form of Cefazolin were administered. 1g of Tranxemic Acid was given intravenously within 30 minutes of incision. The left leg was then prepped with Chloraprep and draped in a standard fashion with shower-curtain type drape with Iodine impregnated skin protection. A timeout to confirm correct identity, side and site, procedure, allergies, anesthesia, and medical concerns was performed. Using fluoroscopy, the starting point was marked over the lateral hip, proximal to the tip of the greater trochanter. A 3cm incision was made through skin and the fascia of the gluteus musculature until the tip of the trochanter was palpable. The starting wire was placed onto the tip, just slightly on the media aspect, and centered in the AP plane. Using a sophia, the starting guide wire was buried into the bone. A lateral x-ray confirmed appropriate position and the guidewire was advanced to the level of the lesser trochanter. With a tissue protector, the proximal femur was opened with the opening reamer. The short TFNA was chosen for this case and a Synthes TFNA [id number] nail was selected and opened on the back table. The nail was assembled to the aiming arm on the back table and confirmed to be aligned with the triple sleeve for blade insertion. Using manual force the nail was advanced into the femur. A few light mallet blows advanced the nail to its appropriate position. The triple sleeve was inserted through the targeting arm and the skin, soft tissue, and IT band was then incised. The triple sleeve was advanced down to the lateral femur. At this location there was a split running in the femur including the posterior portion of the greater trochanter. Despite trying to reposition from a more anterior posterior direction the guidewire continue to fall into the split of the lateral femur. This guidewire was advanced into the femoral head where it was noted to be centered. A lateral x- ray was used to confirm centered positioning on the lateral. Happy with the length of the guidewire, this was measured. A 105mm helical blade was opened. The lateral cortex was opened and the path of the blade was reamed with a tapered reamer to appropriate depth. The helical blade was malletted into position and confirmed to be appropriately located on fluoroscopy. The set screw was advanced to a half turn shy of fully tightened, allowing for the helical blade to slide. The fracture was compressed before removing the targeting device. The targeting device was removed. AP and lateral x-rays of the hip confirmed appropriate positioning within the femur and with good alignment of the fracture. Using the targeting arm, the skin was incised for placement of the distal locking screw. The trochar was inserted through the skin and IT band down onto the lateral cortex of the femur. The 4.2mm drill was advanced across the femur and through the nail. This was measured and an appropriately sized 5.0mm screw was placed. The targeting arm was removed. Final x-rays were obtained. The wounds were thoroughly irrigated. A cocktail consisting of 123mg of Ropivacaine, 0.25mg of Epinephrine, 0.04mg of Clonidine, and 15mg of Ketorolac, diluted to 50cc was injected throughout the wounds both deep and superficially. The deep fascia of the proximal two wounds was reapproximated with a 0 Vicryl. The deep tisses were closed with a 2-0 Vicryl and the skin was closed with a running subcuticular Monocryl. The wounds were dressed with a Mepilex silver dressing. At the end of the case, all counts were correct. Leonidas tolerated the procedure well without known complication and was taken to the PACU for recovery. Physical therapy will start post-operatively, weigh-bearing as tolerated with assistive devices. Anticoagulation will start within 12-24 hours. 3 doses of post-operative antibitiocis for prophylaxis will be administered.
--- NOTE | 2022-11-24 18:37 | PGE_ITS ---
Date of Service Date of service: 11/24/22 Time of Service: 18:38 Assessment and Plan Assessment and plan (1) Intertrochanteric fracture of left femur: Status: Acute Assessment and plan: This is a 72-year-old gentleman who fell and injured his left hip while trying to get into his car. He had a mechanical fall with no presyncopal symptoms. He had no other injuries. He is medically cleared for surgery except for being on Eliquis which will have to be held for 24 hours [address] surgery[address] Ledezma, orthopedics has been consulted and repaired his hip today. . (2) Influenza A: Status: Acute Assessment and plan: Patient has positive influenza A testing with no symptoms. Caution for contagiousness during perioperative period. No indication for Tamiflu (3) CAD (coronary artery disease) of artery bypass graft: Status: Chronic Assessment and plan: Patient is status post CABG x4 in 2016 with no recurrent cardiac symptoms especially around this event. He had a negative work-up at [facility] ED and remained stable at this hospital. He is medically cleared for surgery. He will continue his usual medical regimen. (4) Family history of hypercoagulable state: Status: Chronic Assessment and plan: Patient cannot give a good reason for being on Eliquis with no history of cardiac dysrhythmia and stating that his PCP thought that he would be a good idea to be on Eliquis because of his mother had thromboembolic events though he mentions no testing or previous events of his own. This can be reevaluated. Will restart eliquis tomorrow (5) HTN (hypertension): Status: Chronic Assessment and plan: Fairly well controlled on medical therapy but patient does have hypokalemia with potassium supplement on hydrochlorothiazide. Follow-up lab and replete potassium as needed with patient chronically on potassium supplementation. Check magnesium. (6) Hyperlipidemia: Status: Chronic Assessment and plan: On statin therapy being monitored by PCP with adjustment as needed. (7) DVT prophylaxis: Status: Acute Assessment and plan: Apixaban (8) Discharge planning issues: Status: Acute Assessment and plan: Home w HH PT v SNF v OP PT Discussed with Dr Tolentino Subjective Subjective Patient reports: no new complaints and still having pain Interval history since last seen: Went to OR w orthopedics for hip repair Exam Narrative Exam Narrative: Supine in bed, sleeping, awaiting left hip fracture fixation surgery at time of visit. Pain is controlled Const General: cooperative and no acute distress Orientation: alert, awake and oriented x3 HENMT Head: normal to inspection Ears: hearing grossly normal bilaterally and external ears normal General nose exam: external nose normal Face and sinus: normal facial exam Mouth: oral mucosae normal Eyes General: appearance normal, both eyes and all related structures Eyelids: eyelids normal EOM: EOM intact bilaterally Neck Neck: normal visual inspection Lymphatic: no lymphadenopathy noted Chest Chest: normal inspection of the chest Resp Effort & Inspection: normal respiratory effort and able to speak in complete sentences Auscultation: clear to auscultation bilaterally Cardio Rate: regular rate Rhythm: regular rhythm GI Inspection: normal to inspection Palpation: soft, not firm, no guarding, no hepatosplenomegaly, no masses and nontender Auscultation: normal bowel sounds Skin General skin exam: no rashes or lesions noted Neuro General: patient alert and patient awake Cognition: normal cognition Speech: speech normal Motor: muscle tone normal throughout Sensory Exam: no sensory deficits noted Extrem General: capillary refill normal Psych Appearance: grossly normal Mental Status: mental status grossly normal Speech and Movement: speech and movement normal Affect: normal affect Thought Process: normal Objective Last Vital Signs Temp 36.4 C L 11/24/22 18:07 Pulse 71 11/24/22 18:07 Resp 16 11/24/22 18:07 BP 106/54 L 11/24/22 18:07 Pulse Ox 98 11/24/22 18:07 Laboratory Results - last 24 hr 11/24/22 11/24/22 11/24/22 06:20 06:20 06:20 WBC 9.17 RBC 3.82 L Hgb 12.7 L Hct 37.3 L MCV 98 H MCH 33.2 H MCHC 34.0 RDW 12.9 Plt Count 229 MPV 9.3 PT 10.6 INR 1.1 Sodium 134 L Potassium 3.5 Chloride 100 Carbon Dioxide 25.1 Anion Gap 8.9 BUN 14 Creatinine 0.9 Est GFR (CKD-EPI 2020) 91.88 Glucose 112 H Calcium 8.8 Magnesium 2.1 Total Bilirubin 1.1 H AST 29 ALT 29 Alkaline Phosphatase 64 Troponin I Total Protein 7.1 Albumin 3.6 TSH 11/24/22 06:20 WBC RBC Hgb Hct MCV MCH MCHC RDW Plt Count MPV PT INR Sodium Potassium Chloride Carbon Dioxide Anion Gap BUN Creatinine Est GFR (CKD-EPI 2020) Glucose Calcium Magnesium Total Bilirubin AST ALT Alkaline Phosphatase Troponin I < 50 Total Protein Albumin TSH 0.21 L
--- NOTE | 2022-11-24 20:09 | NUR.NOTE ---
Nursing Note:I Left hip dsrg x 2 intact lower level dsg to one mm size drainage , circled with black marker dated and timed will con't monitor throughout shift ---Nathalie Thompson RN
[2022-11-24] MEDS: ceFAZolin 1 GM/50 ML BAG IVPB (20:17)
[2022-11-24] MEDS: Oseltamivir 75 MG CAP PO (20:21)
[2022-11-24] MEDS: Potassium Citrate 1080 MG TABCR 2160 MG PO (20:25)
[2022-11-24] MEDS: Rosuvastatin 10 MG TAB 20 MG PO (21:38)
[2022-11-24] MEDS: Nortriptyline 10 MG CAP PO (21:38)
[2022-11-25 00:04] VITALS: PULSE 62
[2022-11-25 02:27] VITALS: BP 117/56; PULSE 64; RESP 16; TEMP 36.1; O2SAT 98
[2022-11-25] MEDS: ceFAZolin 1 GM/50 ML BAG IVPB ×2 (04:09→11:18)
[2022-11-25] MEDS: Levothyroxine 150 MCG TAB PO (06:22)
[2022-11-25 06:52] LABS: Abs Immature Grans 0.03 10^3/uL (0.0-0.06); Absolute Basophil Count 0.01 10^3/uL (0.0-0.2); Absolute Eosinophil Count 0.01 10^3/uL (0.0-0.7); Absolute Lymphocyte Count 0.86 10^3/uL (1.2-3.4); Absolute Monocyte Count 1.31 10^3/uL (0.1-0.8); Absolute Neutrophil Count 7.91 10^3/uL (1.2-6.7); Basophils % 0.1; Eosinophils % 0.1; HCT 34.7 % (40.0-50.0); HGB 11.7 g/dL (13.5-17.5); Immature Grans % 0.3; Lymphocytes % 8.5; MCH 33.3 pg (27.0-33.0); MCHC 33.7 % (32.0-36.0); MCV 99 fL (80-95); MPV 9.2 fL (8.0-11.0); Monocytes % 12.9; Neutrophils % 78.1; Platelet Count 216 10^3/uL (130-400); RBC 3.51 10^6/uL (4.36-5.78); RDW 12.3 % (11.8-14.1); RDW-SD 44.5 fL; WBC 10.13 10^3/uL (4.4-10.8)
[2022-11-25 07:00] VITALS: PULSE 59
[2022-11-25 07:15] LABS: Anion Gap 6.5 mmol/L (3-11); BUN 20 mg/dL (7-18); CO2 27.5 mmol/L (21.0-32.0); Calcium 8.8 mg/dL (8.5-10.1); Chloride 100 mmol/L (98-107); Estimated GFR 80.97 (mL/min/1.73m2); Glucose 150 mg/dL (74-106); Magnesium 2.6 mg/dL (1.8-2.4); Potassium 4.3 mmol/L (3.5-5.1); Sodium 134 mmol/L (136-145)
[2022-11-25 07:46] VITALS: BP 118/70; PULSE 66; RESP 19; TEMP 36.7; O2SAT 98
[2022-11-25] MEDS: Potassium Citrate 1080 MG TABCR 2160 MG PO (07:50)
[2022-11-25] MEDS: Tamsulosin 0.4 MG CAPCR 0.8 MG PO (07:51)
[2022-11-25] MEDS: Apixaban 5 MG TAB PO (07:51)
[2022-11-25] MEDS: Losartan 25 MG TAB PO (07:52)
[2022-11-25] MEDS: hydroCHLOROthiazide 25 MG TAB PO (07:52)
[2022-11-25] MEDS: Folic Acid 1 MG TAB PO (07:53)
[2022-11-25] MEDS: Oseltamivir 75 MG CAP PO (07:53)
[2022-11-25] MEDS: Normal Saline Flush 10 ML SYR IVP ×2 (07:54→11:18)
--- NOTE | 2022-11-25 07:57 | CMPROGNOTE_ITS ---
- If Service Date Differs Date of service: 11/25/22 Time of Service: 07:57 Care Management Progress Note S/O: Leonidas remains inpatient, he continues to work with PT; recommendations for home with outpatient PT. CM continues to follow. A: 72 year old male admitted to [facility] 11/24/22 for Left Hip Fracture, Influenza A, anticoagulated P: Anticipate Leonidas will discharge home with no new services. He will follow up with community providers and his plan of care and transport with family. CM will continue to support Leonidas and his discharge planning needs.
[2022-11-25] MEDS: oxyCODONE 5 MG TAB PO (08:09)
--- NOTE | 2022-11-25 08:23 | DSE_ITS ---
Date of service: 11/25/22 Time of Service: 08:30 DS: Diagnosis Discharge Diagnosis (1) Intertrochanteric fracture of left femur: Status: Acute (2) Influenza A: (3) CAD (coronary artery disease) of artery bypass graft: (4) Family history of hypercoagulable state: (5) HTN (hypertension): (6) Hyperlipidemia: Discharge Plan Disposition Patient Disposition: Home Condition: Improving Discharge Details Reason For Visit: Left Hip Fracture,Influenza A,Anticoagulated Admit Date/Time: 11/24/22 00:41 Admit Provider: Jagdeep Mendez Attending Provider: Jagdeep Mendez Primary Care Provider: Phuc Thorne Hospital Course Hospital Course: Patient was admitted to the medical/surgical floor following the procedure. The surgery was tolerated well without any notable medical, surgical, or anesthetic complications. Mobilization began postoperatively. He was voiding spontaneously. Vitals were stable. Physical therapy worked with the patient and was cleared for discharge home. No acute medical issues. Pain was controlled on oral regimen. Brief examination of the left hip shows Mepilex dressings are intact and dry. There is small area of dried blood that had been colored over by nursing staff along the distal dressing. He is able to actively extend his leg and flex his hip with minimal discomfort. Passive hip ROM was seated was smooth and non- irritable. Home Meds and New Rx's Prescriptions: Continued methotrexate sodium 2.5 mg Tablet 2.5 mg PO QWEEK tamsulosin 0.4 mg Capsule 0.8 mg PO DAILY potassium citrate 10 mEq (1,080 mg) Tablet Extended Release 2,160 mg PO BID nortriptyline 10 mg Capsule 10 mg PO QHS lidocaine 5 % Adhesive Patch,Medicated 1 patch TOPICAL DAILY Rx Instructions: leave on most painful area for up to 12 hrs levothyroxine 150 mcg Tablet 150 mcg PO DAILY losartan 25 mg Tablet 25 mg PO DAILY nitroglycerin 0.4 mg Tablet, Sublingual 0.4 mg SUBLINGUAL Q5-15M PRN (Reason: Angina) Rx Instructions: do not exceed 3 doses per episode folic acid 1 mg Tablet 1 mg PO DAILY hydrochlorothiazide 25 mg Tablet 25 mg PO DAILY rosuvastatin 20 mg Tablet 20 mg PO HS pregabalin 75 mg Capsule 75 mg PO BID apixaban 5 mg Tablet 5 mg PO BID No Action celecoxib 200 mg capsule 200 mg PO DAILY Qty: 30 0RF oxycodone 20 mg tablet 20 mg PO Q4H MDD 6 tabs PRN (Reason: pain) Qty: 24 0RF Discharge Instructions Instructions: Oxycodone, Rapid Release (By mouth), ORIF of Hip Fracture (DC) Additional Instructions: Hip Fracture Instructions Activity: You may move and walk as tolerated but you should use an assistive device (walker) and try not to do too much too soon. You should try to take short walks a few times a day. You have no restrictions on movement or positioning, but do not try to force what you do. You will find some stiffness and weakness. Do not try to strengthen this too early, continue to practice walking. The bones still have to heal which takes time. - Physical therapy will be helpful to help return you to a normal gait and improve your flexibility and strength and ambulatory capacity. Dressing: Keep the surgical dressing in place for at least one week. After the first week it may be removed and replace with light gauze and tape or nothing. It may get wet after 3 days but avoid soaking the dressing. If it gets wet, just lightly pat dry. If there is drainage outside of the borders of the dressing, then it will need to be changed. Medications: - You will continue to take Apixaban for your blood clot prevention. - If you have constipation you should take Colace or Miralax (both [id number]). It takes most people 3-4 days to have a bowel movement. Follow-up: [place] need to be removed around 2 weeks. F/U xray at [address] Ledezma. Stand Alone Forms: Nursing Discharge Form Referrals: Kaela, Physical Therapy [Other] - 11/29/22 ( Physical therapy will be helpful to help return you to a normal gait and improve your flexibility and strength and ambulatory capacity. Please call Monday for appointment time) Dr. Chris Thorne [Other] - 12/12/22 8:30 am Mainor Ledezma MD [ [facility] STAFF PHYSICIAN] - 12/22/22 10:45 am Activity:: Activity as Tolerated Equipment/Supplies:: No Equipment Needed Diet:: As Tolerated Discharge Orders Discharge Orders: Discharge Order (Routine); Ordered 11/25/22 Ordered By: Hannah Carr Discharge Data Discharge Date/Time-TO BE ENTERED AT DEPARTURE: 11/25/22 12:45 DS: Summary Time Spent with Patient providing and/or coordinating discharge services: Less than 30 minutes Status at Discharge Functional status at discharge: uses cane/walker Overall status at discharge: patient is progressing back to baseline Mental Status: mental status grossly normal Speech and Movement: speech and movement normal Mood: congruent mood Affect: normal affect Exam Psych Mental Status: mental status grossly normal Speech and Movement: speech and movement normal Mood: congruent mood Affect: normal affect DS: Data Vitals/I&O Vitals and I&O: Vital Signs Temperature 98.1 F 11/25/22 07:46 Temperature Source Tympanic 11/25/22 07:46 Pulse 66 11/25/22 07:46 Pulse Rhythm Regular 11/24/22 21:00 Respiratory Rate 19 11/25/22 07:46 Respiratory Effort 11/25/22 01:07 Respiratory Depth Normal 11/25/22 01:07 Respiratory Pattern Normal 11/25/22 01:07 Blood Pressure 118/70 11/25/22 07:46 Pulse Oximetry 98 11/25/22 07:46 Respiratory End-tidal CO2 35 11/24/22 14:46 Oxygen Delivery Method Room Air 11/25/22 07:46 Oxygen Flow Rate 0 11/25/22 07:46 Pain Level 0 11/25/22 07:46 Comment 11/24/22 16:34 Intake & Output 11/24/22 11/24/22 11/25/22 11:59 23:59 11:59 Intake Total 1049 / 1049 50 / 50 Output Total 950 / 1700 750 / 1700 500 / 500 Balance -950 / -651 299 / -651 -450 / -450 Weight 251 lb 1.704 oz 248 lb 10.903 oz Intake: IV 689 / 689 50 / 50 Oral 360 / 360 Output: Urine 950 / 1450 500 / 1450 500 / 500 Estimated Blood Loss 250 / 250 Other: Urine Color Yellow Yellow Yellow Urine Appearance Clear Clear Clear Urine Odor Normal Normal Normal Emesis Description None Voiding Methods Urinal Urinal Urinal Data Completed and Pending Labs on day of discharge: Labs from last 24 hours 11/25/22 11/25/22 11/24/22 06:06 06:06 06:20 WBC 10.13 RBC 3.51 L Hgb 11.7 L Hct 34.7 L MCV 99 H MCH 33.3 H MCHC 33.7 RDW 12.3 Plt Count 216 MPV 9.2 Immature Gran % 0.3 Neutrophils % 78.1 Lymphocytes % 8.5 Monocytes % 12.9 Eosinophils % 0.1 Basophils % 0.1 Nucleated RBC % 0.0 Absolute Neutrophils 7.91 H Absolute Lymphocytes 0.86 L Absolute Monocytes 1.31 H Absolute Eosinophils 0.01 Absolute Basophils 0.01 Sodium 134 L Potassium 4.3 Chloride 100 Carbon Dioxide 27.5 Anion Gap 6.5 BUN 20 H Creatinine 1.0 Est GFR (CKD-EPI 2020) 80.97 Glucose 150 H Calcium 8.8 Magnesium 2.6 H Troponin I < 50 TSH 0.21 L PFSH All Active Problems (Updated 11/26/22 @ 00:00 by GLENNY SARABIA) Hypothyroidism (acquired) (Acute) Hypokalemia (Acute) Rheumatoid arthritis in remission (Acute) Intertrochanteric fracture of left femur (Acute) Medical History (Updated 11/26/22 @ 00:00 by GLENNY SARABIA) CAD (coronary artery disease) of artery bypass graft Family history of hypercoagulable state HTN (hypertension) Hyperlipidemia Influenza A Social History Smoking/Tobacco Use Status: Never Smoking risk assessment performed?: Yes Alcohol Intake: never Drug use: Never Substance use type: does not use Do you feel safe at home: Yes Do you feel safe in your relationship?: Yes Time Spent with Patient Time Spent with Patient: <45 minutes Time was spent: counseling the patient
--- NOTE | 2022-11-25 09:31 | PT.INTREAT ---
Date of service: 11/25/22 Time of Service: 07:55 PT Notes Visit Reasons: Left Hip Fracture,Influenza A,Anticoagulated Inpatient Physical Therapy Treatment Note [facility] Date: 11/25/2022 PRECAUTIONS: Fall, activity as tolerated, WBAT L SUBJECTIVE: Leonidas is pleasant and agreeable to participating in PT. He reports that he would like to discharge to home today, as his dog is home alone and his is in the hospital as well in [place]. Patient reports that he does not sleep in a bed, that he sleeps in a recliner. OBJECTIVE: PAIN: Patient c/o anterior thigh pain with gait training and transfers BED MOBILITY/TRANSFERS Sit-stand: SBA Stand-sit: SBA GAIT Assistive Device: FWW Weight bearing: WBAT L Assist: SBA Distance: 125' x2 Deviation: Step-to/step-through gait pattern, antalgic gait, verbal and tactile cueing for continuous FWW advancement, seated rest x1 THEREX: Patient was instructed in a LE strengthening and stabilization program, completed in a long-sitting position, to include: ankle pumps, quad sets, glute sets, heel slides and hip abduction. STAIRS: Up/down 3x4 and 2x6 using B rails and a step-to pattern with supervision, following instruction for sequence ASSESSMENT: Patient tolerated session well, although with complaint of anterior thigh soreness with gait training and transfers. He was able to tolerate a progression in gait distance with FWW support and SBA. PLAN: Patient to discharge to home later today, per provider. Recommend follow up with OP PT upon discharge to home. TREATMENT CODE/TIME: 43 minutes; 72006 x2, 01085 (07:55)
--- NOTE | 2022-11-25 10:53 | DSE_ITS ---
Date of service: 11/25/22 Time of Service: 10:53 DS: Diagnosis Discharge Diagnosis (1) Intertrochanteric fracture of left femur: Status: Acute (2) Influenza A: Status: Acute (3) CAD (coronary artery disease) of artery bypass graft: Status: Chronic (4) Family history of hypercoagulable state: Status: Chronic (5) HTN (hypertension): Status: Chronic (6) Hyperlipidemia: Status: Chronic (7) DVT prophylaxis: Status: Acute (8) Discharge planning issues: Status: Acute Discharge Plan Disposition Patient Disposition: Home Condition: Improving Discharge Details Reason For Visit: Left Hip Fracture,Influenza A,Anticoagulated Admit Date/Time: 11/24/22 00:41 Admit Provider: Jagdeep Mendez Attending Provider: Jagdeep Mendez Primary Care Provider: Phuc Thorne Hospital Course Hospital Course: Patient was admitted to the medical/surgical floor following the procedure. The surgery was tolerated well without any notable medical, surgical, or anesthetic complications. Mobilization began postoperatively. He was voiding spontaneously. Vitals were stable. Physical therapy worked with the patient and was cleared for discharge home. No acute medical issues. Pain was controlled on oral regimen. Brief examination of the left hip shows Mepilex dressings are intact and dry. There is small area of dried blood that had been colored over by nursing staff along the distal dressing. He is able to actively extend his leg and flex his hip with minimal discomfort. Passive hip ROM was seated was smooth and non- irritable. Home Meds and New Rx's Prescriptions: New oxycodone 5 mg capsule 5 mg PO Q6H PRNQty: 20 0RF Continued methotrexate sodium 2.5 mg Tablet 2.5 mg PO QWEEK tamsulosin 0.4 mg Capsule 0.8 mg PO DAILY potassium citrate 10 mEq (1,080 mg) Tablet Extended Release 2,160 mg PO BID nortriptyline 10 mg Capsule 10 mg PO QHS lidocaine 5 % Adhesive Patch,Medicated 1 patch TOPICAL DAILY Rx Instructions: leave on most painful area for up to 12 hrs levothyroxine 150 mcg Tablet 150 mcg PO DAILY losartan 25 mg Tablet 25 mg PO DAILY nitroglycerin 0.4 mg Tablet, Sublingual 0.4 mg SUBLINGUAL Q5-15M PRN (Reason: Angina) Rx Instructions: do not exceed 3 doses per episode folic acid 1 mg Tablet 1 mg PO DAILY hydrochlorothiazide 25 mg Tablet 25 mg PO DAILY rosuvastatin 20 mg Tablet 20 mg PO HS pregabalin 75 mg Capsule 75 mg PO BID apixaban 5 mg Tablet 5 mg PO BID Discharge Instructions Instructions: Oxycodone, Rapid Release (By mouth), ORIF of Hip Fracture (DC) Additional Instructions: Hip Fracture Instructions Activity: You may move and walk as tolerated but you should use an assistive device (walker) and try not to do too much too soon. You should try to take short walks a few times a day. You have no restrictions on movement or positioning, but do not try to force what you do. You will find some stiffness and weakness. Do not try to strengthen this too early, continue to practice walking. The bones still have to heal which takes time. - Physical therapy will be helpful to help return you to a normal gait and improve your flexibility and strength and ambulatory capacity. Dressing: Keep the surgical dressing in place for at least one week. After the first week it may be removed and replace with light gauze and tape or nothing. It may get wet after 3 days but avoid soaking the dressing. If it gets wet, just lightly pat dry. If there is drainage outside of the borders of the dressing, then it will need to be changed. Medications: - You will continue to take Apixaban for your blood clot prevention. - If you have constipation you should take Colace or Miralax (both [id number]). It takes most people 3-4 days to have a bowel movement. Follow-up: [place] need to be removed around 2 weeks. F/U xray at [address] Ledezma. Stand Alone Forms: Nursing Discharge Form Referrals: Kaela, Physical Therapy [Other] - 11/29/22 ( Physical therapy will be helpful to help return you to a normal gait and improve your flexibility and strength and ambulatory capacity. Please call Monday for appointment time) Dr. Chris Thorne [Other] - 12/12/22 8:30 am Mainor Ledezma MD [ [facility] STAFF PHYSICIAN] - 12/22/22 10:45 am Activity:: Activity as Tolerated Equipment/Supplies:: No Equipment Needed Diet:: As Tolerated Discharge Orders Discharge Orders: Discharge Order (Routine); Ordered 11/25/22 Ordered By: Hannah Carr Discharge Data Discharge Date/Time-TO BE ENTERED AT DEPARTURE: 11/25/22 12:45 DS: Summary Time Spent with Patient providing and/or coordinating discharge services: Greater than 30 minutes Status at Discharge Functional status at discharge: uses cane/walker Overall status at discharge: patient is progressing back to baseline Mental Status: mental status grossly normal Speech and Movement: speech and movement normal Mood: congruent mood and irritable mood Affect: normal affect Exam Narrative Exam Narrative: Sitting in a chair, POD 1, doing well, seen by Dr Ledezma and discharged to home with outpt PT ordered Const General: cooperative and no acute distress Orientation: alert, awake and oriented x3 HENMT Head: normal to inspection Ears: hearing grossly normal bilaterally and external ears normal General nose exam: external nose normal Face and sinus: normal facial exam Mouth: oral mucosae normal Eyes General: appearance normal, both eyes and all related structures Eyelids: eyelids normal EOM: EOM intact bilaterally Neck Neck: normal visual inspection Lymphatic: no lymphadenopathy noted Chest Chest: normal inspection of the chest Resp Effort & Inspection: normal respiratory effort and able to speak in complete sentences Auscultation: clear to auscultation bilaterally Cardio Rate: regular rate Rhythm: regular rhythm GI Inspection: normal to inspection Palpation: soft, not firm, no guarding, no hepatosplenomegaly, no masses and nontender Auscultation: normal bowel sounds Skin General skin exam: no rashes or lesions noted Neuro General: patient alert and patient awake Cognition: normal cognition Speech: speech normal Motor: muscle tone normal throughout Sensory Exam: no sensory deficits noted Extrem General: capillary refill normal Psych Appearance: grossly normal Mental Status: mental status grossly normal Speech and Movement: speech and movement normal Mood: congruent mood and irritable mood Affect: normal affect Thought Process: normal DS: Data Vitals/I&O Vitals and I&O: Vital Signs Temperature 36.7 C 11/25/22 07:46 Temperature Source Tympanic 11/25/22 07:46 Pulse 66 11/25/22 07:46 Pulse Rhythm Regular 11/25/22 08:00 Respiratory Rate 19 11/25/22 07:46 Respiratory Effort Non-Labored 11/25/22 08:00 Respiratory Depth Normal 11/25/22 08:00 Respiratory Pattern Normal 11/25/22 08:00 Blood Pressure 118/70 11/25/22 07:46 Pulse Oximetry 98 11/25/22 07:46 Respiratory End-tidal CO2 35 11/24/22 14:46 Oxygen Delivery Method Room Air 11/25/22 07:46 Oxygen Flow Rate 0 11/25/22 07:46 Pain Level 0 11/25/22 07:46 Comment 11/24/22 16:34 Intake & Output 11/24/22 11/24/22 11/25/22 11:59 23:59 11:59 Intake Total 1049 / 1049 550 / 550 Output Total 950 / 1700 750 / 1700 915 / 915 Balance -950 / -651 299 / -651 -365 / -365 Weight 113.9 kg 112.8 kg Intake: IV 689 / 689 50 / 50 Oral 360 / 360 500 / 500 Output: Urine 950 / 1450 500 / 1450 915 / 915 Estimated Blood Loss 250 / 250 Other: Urine Color Yellow Yellow Yellow Urine Appearance Clear Clear Clear Urine Odor Normal Normal None Emesis Description None Voiding Methods Urinal Urinal Urinal Data Completed and Pending Labs on day of discharge: Labs from last 24 hours 11/25/22 11/25/22 06:06 06:06 WBC 10.13 RBC 3.51 L Hgb 11.7 L Hct 34.7 L MCV 99 H MCH 33.3 H MCHC 33.7 RDW 12.3 Plt Count 216 MPV 9.2 Immature Gran % 0.3 Neutrophils % 78.1 Lymphocytes % 8.5 Monocytes % 12.9 Eosinophils % 0.1 Basophils % 0.1 Nucleated RBC % 0.0 Absolute Neutrophils 7.91 H Absolute Lymphocytes 0.86 L Absolute Monocytes 1.31 H Absolute Eosinophils 0.01 Absolute Basophils 0.01 Sodium 134 L Potassium 4.3 Chloride 100 Carbon Dioxide 27.5 Anion Gap 6.5 BUN 20 H Creatinine 1.0 Est GFR (CKD-EPI 2020) 80.97 Glucose 150 H Calcium 8.8 Magnesium 2.6 H PFSH All Active Problems (Updated 11/24/22 @ 18:49 by Hannah Carr NP) Discharge planning issues (Acute) DVT prophylaxis (Acute) Hypothyroidism (acquired) (Acute) Hypokalemia (Acute) Family history of hypercoagulable state (Chronic) Hyperlipidemia (Chronic) HTN (hypertension) (Chronic) Rheumatoid arthritis in remission (Acute) Influenza A (Acute) CAD (coronary artery disease) of artery bypass graft (Chronic) Intertrochanteric fracture of left femur (Acute) Social History Smoking/Tobacco Use Status: Never Smoking risk assessment performed?: Yes Alcohol Intake: never Drug use: Never Substance use type: does not use Do you feel safe at home: Yes Do you feel safe in your relationship?: Yes
[2022-11-25 11:26] VITALS: BP 121/69; PULSE 87; RESP 18; TEMP 36.8; O2SAT 94
[2022-11-25 12:32] VITALS: PULSE 82
--- NOTE | 2022-11-25 14:43 | PDOC.CMDIS ---
- If Service Date Differs Date of service: 11/25/22 Time of Service: 14:43 LACE Index Scoring Tool - Questions: Length of Stay (in days): 1 Acuity (Admit via E.D.?): Yes E.D. Visits: 0 - Answers: Total Score: 4 Risk of Readmission: Low Risk Care Management Discharge Reason for Hospitalization: Intertrochanteric fracture of left femur Discharge Plan: Leonidas will discharge home with no new services. He will follow up with community providers and his plan of care and transport via private vehicle with family. Patient/Family Education Needs: Review discharge instructions, discuss Ask Me Three.
--- NOTE | 2022-11-29 09:45 | INDS_ITS ---
Date of service: 11/29/22 Time of Service: 09:45 PT Notes Visit Reasons: Left Hip Fracture,Influenza A,Anticoagulated Physical Therapy Inpatient Discharge Summary Date: 11/29/2022 Dates of Service: 11/24/2022 through 11/25/2022 This is a clinical summary of care provided for the duration of dates listed above. No charge was made in the completion of this documentation. Referring Doctor: Mainor Ledezma MD PT Orders: PT CONSULT: S/p Ortho surgery.? S/p IMN fixation of left femur fracture. Precautions: Fall.? Standard. WBAT on the R LE with AD.? Droplet precautions in place. Patient Profile/Admitting Diagnosis:? Leonidas is a 72-year-old male with a displaced basicervical intertrochanteric fracture of the left hip sustained from a fall at home and is status post ORIF on postoperative day 0.? Patient also with a diagnosis of influenza A, CAD, hypertension, and hyperlipidemia. PMHX: All Active Problems?(Updated 11/24/22 @ 06:50 by Jagdeep Mendez) Hypothyroidism (acquired) (Acute) Hypokalemia (Acute) Family history of hypercoagulable state (Chronic) Hyperlipidemia (Chronic) HTN (hypertension) (Chronic) Rheumatoid arthritis in remission (Acute) Influenza A (Acute) CAD (coronary artery disease) of artery bypass graft (Chronic) Intertrochanteric fracture of left femur (Acute) Social History/Home Situation: Lives with who currently is in the hospital recovering from a fall.? Has three steps at the entarnce of his home with one rail.? Independent with all aspects of ADLs prior to surgery.? Excluding this mechanical fall,? patient has had no falls in the past year.? Still drives. Equipment Owned/DME: Wheelchair,? FWW, SPC Subjective: NT. See most recent LOGISTICS MANAGEMENT SPECIALIST notes. Objective: General Observation: NT. See most recent LOGISTICS MANAGEMENT SPECIALIST notes. Mental Status: NT. See most recent LOGISTICS MANAGEMENT SPECIALIST notes. Pain: NT. See most recent LOGISTICS MANAGEMENT SPECIALIST notes. Vital Signs: NT. See most recent LOGISTICS MANAGEMENT SPECIALIST notes. ROM: Right Lower Extremity: Hip flexion allows up to 90 degrees. Hip abduction allows 10 degrees. Unable to slide L LE towards right edge of bed.? Knee flexion WFL. Ankle dorsiflexion WFL. Ankle plantarflexion WFL. Left Lower Extremity: Hip flexion WFL. Hip abduction WFL. Knee flexion WFL. Ankle dorsiflexion WFL. Ankle plantarflexion WFL. Strength: Right Lower Extremity: Hip flexors 5/5. Hip abductors 5/5. Knee flexors 5/5. Knee extensors 4/5. Ankle dorsiflexors 4/5. Ankle plantarflexors 4/5. Left Lower Extremity: Hip flexors 3-/5. Hip abductors 3-/5. Knee flexors 4-/5. Knee extensors 4-/5. Ankle dorsiflexors 4-/5. Ankle plantarflexors 4-/5. BED MOBILITY/TRANSFERS? Sit-stand: SBA? Stand-sit: SBA? GAIT? Assistive Device: FWW? Weight bearing: WBAT L Assist: SBA ? Distance:? 125' x2 ? Deviation: Step-to/step-through gait pattern, antalgic gait, verbal and tactile cueing for continuous FWW advancement, seated rest x1 ? STAIRS: Up/down 3x4 and 2x6 using B rails and a step-to pattern with supervision, following instruction for sequence? Balance: Static Sitting: Normal Dynamic Sitting: Normal Static Standing: Fair Dynamic Standing: Fair THERA EX: Instructed patient to do the following every hour while awake today and tomorrow sinan before he gets seen by PT again Ankle pumps x10 Quadriceps setting x 5 Assessment: Patient requires the use of a front-wheel walker for all mobility ADL performance to maximize independence and reduce fall risk.? Patient presents with clinical signs and symptoms consistent with current/admitting diagnoses that have resulted to mobility limitations, gait instability, generalized weakness, and overall ADL decline as demonstrated by the following impairment level findings: 1.? Decreased strength to L hip major muscle groups 2.? Impaired sitting/standing balance 3.? Impaired? tolerance 4.? Limitation of joint range of motion in L hip 5.? pain at 7-8/10 in the L hip Impairments are contributing to the following functional limitations: 1.? Decline in bed mobility skills 2.? Decline in transfer skills 3.? Difficulty with ambulation without assistive device and physical assistance 4.? Increased completion time for mobility ADL performance 5.? Increased risk for falls 6.? Difficulty with managing steps alone safely Goals: Goals X1 week 1. Supine-Sit independent NOT MET 2. Sit-Supine independent NOT MET 3. Sit-Stand independent NOT MET 4. Stand-Sit independent with FWW NOT MET 5. Bed-Chair independent with FWW NOT MET 6. Chair-Bed independent with FWW NOT MET 7. Independent gait on level surface with use of FWW for at least 300 feet without report of pain nor dyspnea NOT MET 8. Independent stair negotiation while holding onto 1 rails for at least 3 steps without report of pain nor dyspnea NOT MET 9. Independent with home exercise program NOT MET 10. Good static and dynamic standing balance/tolerance NOT MET DISCHARGE RECOMMENDATIONS: [] ? Home with no services [] [] ? Home with services [specify] [X] ? Home with outpatient PT. Home when medically cleared by orthopedic surgeon.? Recommend outpatient PT services in order to optimize functional mobility outcomes and facilitate return to independent community ambulation without an assistive device. [] ? SNF for continued rehabilitation [] [] ? [facility] [] [] ? SNF versus LTC based on ability to participate and progress [] TREATMENT CODE/TIME: SD Thank you for the opportunity to participate in the care of this patient. Alyssia Stuart PT, DPT, CLT [facility] [place], [place]
== END 2022-11-25 12:45 | disposition home or self-care (01) | DRG 481 ==
PROVIDERS: Nurse Practitioner Family; Student in an Organized Health Care Education/Training Program; Admitting Provider Family Medicine; PCP Hospitalist; Visit Provider Family Medicine
PROC: 0QS706Z Reposition Left Upper Femur with Intramedullary Internal Fixation Device, Open Approach (ICD-10-PCS; CPT 27245; principal; 2022-11-24 11:45)
DX: S72.142A Displaced intertrochanteric fracture of left femur, initial encounter for closed fracture (principal); I25.810 Atherosclerosis of coronary artery bypass graft(s) without angina pectoris; J10.1 Influenza due to other identified influenza virus with other respiratory manifestations; I10 Essential (primary) hypertension; E78.5 Hyperlipidemia, unspecified; M06.9 Rheumatoid arthritis, unspecified; E03.9 Hypothyroidism, unspecified; E87.6 Hypokalemia; G89.29 Other chronic pain; E66.9 Obesity, unspecified; G62.9 Polyneuropathy, unspecified; Z68.34 Body mass index [BMI] 34.0-34.9, adult; Z79.01 Long term (current) use of anticoagulants; Z84.89 Family history of other specified conditions; W00.0XXA Fall on same level due to ice and snow, initial encounter
CPT/HCPCS: 27245; 36415; 80048; 80053; 85027; 97110; 97530; 99223; 73501; 83735; 84443; 84484; 85025; 85610; 93005; 93010; 99239; J0690; J1100; J1170; J1885; J2370; J2405; J2704; J3010